=== PATIENT | male | born 1985 | race Hispanic/Latino ===

== ENCOUNTER 2019-03-24 18:24 | Emergency (ER) | payer SELFPAY ==
[~2019-03-24 18:24] MED LIST: ISOVUE-370 76%-LOCM 1 ML ONE
[2019-03-24 18:40] LABS: #Basophils 0.1 thou/uL (0.0-0.2); #Lymphocytes 2.8 thou/uL (1.20-3.40); #Monocytes 0.3 thou/uL (0.11-0.59); #Neutrophils 2.5 thou/uL (1.40-6.50); %Basophils 1.6 % (0.0-1.0); %Eosinophils 0.5 % (0.0-10.0); %Lymphocytes 49.4 % (21.0-51.0); %Monocytes 4.4 % (0.0-10.0); %Neutrophils 44.1 % (42.0-75.0); Hemoglobin 14.9 g/dL (14.0-18.0); Mean Corpuscular Hemoglobin 30.8 pg (27.0-31.0); Mean Corpuscular Volume 90.6 fL (78.0-98.0); Mean Platelet Volume 8.1 fL (7.4-10.4); Platelet Count 274 thou/uL (130-400); RBC Distribution Width 11.5 % (11.5-14.5); Red Blood Cell (RBC) Count 4.83 mill/uL (4.70-6.10); White Blood Cell (WBC) Count 5.6 thou/uL (4.8-10.8)
[2019-03-24 18:46] LABS: PTT 23.8 SEC (22.9-36.1); Prothrombin Time 13.5 SEC (12.0-14.7)
[2019-03-24 19:02] LABS: ALT (SGPT) 46 U/L (8-55); AST (SGOT) 46 U/L (5-34); Albumin 4.3 g/dL (3.5-5.0); Alkaline Phosphatase 52 U/L (40-150); Anion Gap 16 mmol/L (10-20); BUN (Urea Nitrogen) 12 mg/dL (8.9-20.6); Bilirubin, Total 0.3 mg/dL (0.2-1.2); Calc. Creatinine Clearance 0 mL/min (70-130); Calcium 8.6 mg/dL (7.8-10.44); Carbon Dioxide 18 mmol/L (22-29); Chloride 108 mmol/L (98-107); Estimated GFR-MDRD 89; Globulin 2.5 g/dL (2.4-3.5); Glucose 109 mg/dL (70-105); Potassium 3.7 mmol/L (3.5-5.1); Protein, Total 6.8 g/dL (6.0-8.3); Sodium 138 mmol/L (136-145)
--- NOTE | 2019-03-24 19:03 | RAD ---
AP PELVIS 03/24/19 HISTORY: Injury, pelvic pain. FINDINGS/IMPRESSION: No acute fracture or dislocation is seen. POS: [facility]
[2019-03-24 19:05] LABS: Acetaminophen Less than 6.0 mcg/mL (10.0-30.0); Alcohol 238 mg/dL (Less than 10); Salicylate Less than 8.0 mg/dL (15.0-30.0)
[2019-03-24] MEDS ORDERED: Adacel (T-DAP) 0.5 ML SYRINGE ONE (19:07)
--- NOTE | 2019-03-24 19:09 | RAD ---
PORTABLE CHEST ONE VIEW: 03/24/19 at 6:37 p.m. HISTORY: Injury, chest pain, level II trauma. FINDINGS/IMPRESSION: The heart size is normal. No lobar consolidation, pneumothoraces, or pleural effusions are seen. If t here is high clinical suspicion for intrathoracic injury, further evaluation with CT scan should be p erformed. POS: [facility]
--- NOTE | 2019-03-24 19:17 | CT ---
CT OF THE BRAIN WITHOUT CONTRAST: 03/24/19 HISTORY: Level II trauma. FINDINGS: No evidence of acute infarct, hemorrhage, midline shift or abnormal extra-axial fluid collections are seen. The ventricular size is appropriate and the basilar cisterns are patent. The bony calvarium is intact. The visualized paranasal sinuses and mastoid air cells are well aerated. There is soft tissu e swelling in the frontal and periorbital regions with small radiopaque densities consistent with for eign bodies. The largest of these are on the left. IMPRESSION: No CT evidence of acute intracranial process. Findings were discussed over the telephone with ER physician, Dr. Dinesh Trejo at 6:46 p.m. POS: [facility]
--- NOTE | 2019-03-24 19:19 | CT ---
CT CERVICAL SPINE WITH CORONAL AND SAGITTAL REFORMATIONS: 03/24/19 HISTORY: Level II trauma. Neck pain. FINDINGS/IMPRESSION: There is loss of the cervical lordosis with straightening of the cervical spine. No fracture, subluxa tion or facet malalignment is seen. Discussed over the telephone with ER physician, Dr. Dinesh Trejo at 6:52 p.m. POS: [facility]
--- NOTE | 2019-03-24 19:26 | CT ---
CT CHEST WITH IV CONTRAST CT ABDOMEN WITH IV CONTRAST CT PELVIS WITH IV CONTRAST CORONAL AND SAGITTAL REFORMATIONS OF THE THORACOLUMBAR SPINE: 03/24/19 HISTORY: Level II trauma, chest pain, abdominal pain, back pain. FINDINGS: No mediastinal hematoma or intimal flap in the aorta is seen to suggest transection. No pneumothorace s, focal areas of consolidation, pleural or pericardial effusions are seen. There are mild atelectat ic changes in the lung joseph bilaterally. The liver, spleen, pancreas, adrenal glands, and kidneys are normal. The gallbladder and urinary blad ary are well distended and intact. No free air or free fluid is seen in the abdomen or pelvis. Absence of oral contrast reduces the sensitivity of the exam for evaluation of bowel. No acute fracture or subluxation is seen in the thoracolumbar spine. There are bilateral pars intera rticularis defects at L5 level. The remainder of the bones also appear intact. IMPRESSION: No CT evidence of acute intrathoracic or solid organ injury. Discussed over the telephone with ER physician, Dr. Dinesh Trejo at 7:08 p.m. POS: [facility]
[2019-03-24] MEDS ORDERED: Lidocaine 1% w/Epinephrine 1:100K 20 ML VIAL ONE (19:31)
[2019-03-24 20:31] LABS: HBCM Index 0.06 S/CO (0-0.79); HIV (1/2) Antibody/Antigen Non-Reactive (NonReactive); Hep A IgM AB Non-Reactive (NonReactive); Hep A IgM S/CO 0.13 S/CO (0-0.79); Hep B Surf Ag Non-Reactive S/CO (NonReactive); Hep C IgG Ab Non-Reactive (NonReactive); Hep C Index 0.04 S/CO (0-0.79); Hepatitis B Core IgM Abs Non-Reactive (NonReactive)
[2019-03-24] MEDS ORDERED: Morphine 4 MG/ML VIAL ONE (20:35)
== END 2019-03-24 22:17 | disposition home or self-care (01) ==
LOC: ERS 18:24
DX: S01.81XA Laceration without foreign body of other part of head, initial encounter (principal); S61.412A Laceration without foreign body of left hand, initial encounter; S50.812A Abrasion of left forearm, initial encounter; S50.811A Abrasion of right forearm, initial encounter; S20.319A Abrasion of unspecified front wall of thorax, initial encounter; V47.6XXA Car passenger injured in collision with fixed or stationary object in traffic accident, initial encounter
CPT/HCPCS: 12011; 70450; 71045; 71260; 72125; 72170; 74177; 80053; 80074; 80307; 85025; 85610; 85730; 86850; 86900; 86901; 87389; 90471; 90715; 96374; G0390; J2001; J2270; Q9966